=== PATIENT | female | born 1960 | race Caucasian/White ===

== ENCOUNTER 2016-08-14 11:51 | Inpatient (IN) | payer MEDICAID, OTHER ==
[~2016-08-14] VITALS: Ht 172.7 cm; Wt 52.2 kg
[~2016-08-14 11:51] MED LIST: CITA20TA9 PO; RISP3 PO
[2016-08-14 12:38] LABS: BASOPHILS % (AUTO) 0.6 % (0.0-2.0); EOSINOPHILS % (AUTO) 1.2 % (1.0-6.0); HEMATOCRIT 31.8 % (36-46); LYMPHOCYTES # (AUTO) 1.8 K/uL (1.0-4.8); MEAN CORPUSCULAR HEMOGLOBIN 30.3 pg (26.0-34.0); MEAN CORPUSCULAR HGB CONC 34.6 G/dL (31.0-37.0); MEAN CORPUSCULAR VOLUME 88 fL (80-100); MONOCYTES % (AUTO) 10.6 % (2.0-9.0); NEUTROPHILS # (AUTO) 6.6 K/uL (1.8-7.7); NEUTROPHILS % (AUTO) 68.6 % (40.0-70.0); PLATELET COUNT (AUTO) 379 K/uL (150-450); RED BLOOD CELL COUNT(AUTO) 3.63 MIL/uL (4.00-5.20); RED CELL DISTRIBUTION WIDTH 13.5 % (11.5-14.5); WHITE BLOOD COUNT (AUTO) 9.6 K/uL (4.5-11.0)
[2016-08-14 12:55] LABS: ANION GAP 13 mmol/L (8-16); CALCIUM, TOTAL 8.9 mg/dL (8.8-10.5); CARBON DIOXIDE 21 mmol/L (22-29); CHLORIDE 101 mmol/L (98-107); CREATININE 0.67 mg/dL (0.60-1.30); GLOMERULAR FILTR. RATE CALC > 60 mL/min (>60); POTASSIUM 3.1 mmol/L (3.5-5.1); SODIUM SERUM 135 mmol/L (136-145); UREA NITROGEN, BLOOD 21 mg/dL (7-18)
[2016-08-14 13:01] LABS: ALANINE AMINOTRANSFERASE 42 U/L (12-78); ALBUMIN 3.8 g/dL (3.4-5.0); ASPARTATE AMINOTRANSFERASE 89 U/L (15-37); BILIRUBIN,TOTAL 0.9 mg/dL (0.1-1.0); TOTAL PROTEIN, SERUM 7.5 g/dL (6.4-8.2)
[2016-08-14] MEDS ORDERED: DiphenhydrAMINE HCL 50 MG/ML VIAL IM ONE (14:00)
[2016-08-14] MEDS ORDERED: HALOPERIDOL LACTATE 5 MG/ML VIAL IM ONE (14:00)
[2016-08-14] MEDS ORDERED: LORazepam 2 MG/ML VIAL IM ONE (14:00)
[2016-08-14] MEDS ORDERED: MAG HYDROX/AL HYDROX/SIMETH ES 30 ML SUSPENSION UDCUP PO PRN (14:30)
[2016-08-14] MEDS ORDERED: ZOLPIDEM TARTRATE 10 MG TABLET PO PRN (14:30)
[2016-08-14] MEDS ORDERED: MAGNESIUM HYDROXIDE SUSPENSION 30 ML UDCUP PO PRN (14:30)
[2016-08-14] MEDS ORDERED: ACETAMINOPHEN 325 MG TABLET PO PRN (14:30)
[2016-08-14] MEDS ORDERED: POTASSIUM CHLORIDE 20 MEQ ER TABLET PO ONE (15:30)
[2016-08-14 19:27] VITALS: BP 100/79
[2016-08-14] MEDS ORDERED: PNEUMOCOCCAL VACCINE POLYVALENT 0.5 ML VIAL [PPSV23] IM ONE (19:45)
[2016-08-15 08:05] VITALS: BP 108/68
[2016-08-15] MEDS ORDERED: MAG HYDROX/AL HYDROX/SIMETH ES 30 ML SUSPENSION UDCUP PO PRN (11:00)
[2016-08-15] MEDS ORDERED: CloNIDine HCL 0.1 MG TABLET PO PRN (11:00)
[2016-08-15] MEDS ORDERED: BENZOCAINE/MENTHOL LOZENGE MM PRN (11:00)
[2016-08-15] MEDS ORDERED: MAGNESIUM HYDROXIDE SUSPENSION 30 ML UDCUP PO PRN (11:00)
[2016-08-15] MEDS ORDERED: BACITRACIN 28.4 GM OINTMENT TP PRN (11:00)
[2016-08-15] MEDS ORDERED: ACETAMINOPHEN 325 MG TABLET PO PRN (11:00)
[2016-08-15] MEDS ORDERED: ALBUTEROL SULFATE HFA 90 MCG/PUFF 8 GM INHALER IH PRN (11:00)
[2016-08-15] MEDS ORDERED: ONDANSETRON HCL 4 MG TABLET PO PRN (11:00)
[2016-08-15] MEDS ORDERED: PETROLATUM,WHITE 71 GM JELLY TP PRN (11:00)
[2016-08-15] MEDS ORDERED: IBUPROFEN 600 MG TABLET PO PRN (11:00)
[2016-08-15] MEDS ORDERED: LOPERAMIDE HCL 2 MG CAPSULE PO PRN (11:00)
[2016-08-15 16:06] VITALS: BP 112/62
[2016-08-15] MEDS: CITALOPRAM HYDROBROMIDE 20 MG TABLET PO SCH (21:00)
[2016-08-16 08:02] VITALS: BP 144/81
[2016-08-16] MEDS: LORazepam 2 MG TABLET PO PRN ×2 (08:32→16:31)
[2016-08-16] MEDS: HALOPERIDOL 5 MG TABLET PO PRN ×2 (08:32→16:31)
[2016-08-16] MEDS: RisperiDONE 1 MG TABLET PO SCH ×2 (08:32→16:31)
[2016-08-16] MEDS ORDERED: RisperiDONE MICROSPHERES 50 MG/2 ML SYRINGE IM ONE (09:00)
[2016-08-16] MEDS: NICOTINE 21 MG/24 HOUR PATCH TD SCH (09:04)
[2016-08-16 16:39] VITALS: BP 96/66
[2016-08-16] MEDS: CITALOPRAM HYDROBROMIDE 20 MG TABLET PO SCH (20:47)
[2016-08-17 08:02] VITALS: BP 91/64
[2016-08-17] MEDS: LORazepam 2 MG TABLET PO PRN (08:19)
[2016-08-17] MEDS: NICOTINE 21 MG/24 HOUR PATCH TD SCH (08:19)
[2016-08-17] MEDS: RisperiDONE 1 MG TABLET PO SCH ×2 (08:19→16:02)
[2016-08-17 16:32] VITALS: BP 101/76
[2016-08-17] MEDS: CITALOPRAM HYDROBROMIDE 20 MG TABLET PO SCH (20:39)
[2016-08-18 03:10] VITALS: BP 101/71
[2016-08-18] MEDS: NICOTINE 21 MG/24 HOUR PATCH TD SCH (08:01)
[2016-08-18] MEDS: RisperiDONE 1 MG TABLET PO SCH ×2 (08:01→16:37)
[2016-08-18 08:28] VITALS: BP 103/65
[2016-08-18 14:02] VITALS: BP 112/67
[2016-08-18 16:02] VITALS: BP 112/67
[2016-08-18] MEDS: LORazepam 2 MG TABLET PO PRN (16:37)
[2016-08-18] MEDS ORDERED: RisperiDONE 3 MG TABLET PO ONE (19:45)
[2016-08-18] MEDS: CITALOPRAM HYDROBROMIDE 20 MG TABLET PO SCH (20:27)
[2016-08-19 05:31] VITALS: BP 110/68
[2016-08-19] MEDS: NICOTINE 21 MG/24 HOUR PATCH TD SCH (08:20)
[2016-08-19] MEDS: LORazepam 2 MG TABLET PO PRN (08:23)
[2016-08-19 08:55] VITALS: BP 117/71
[2016-08-19] MEDS ORDERED: RisperiDONE 3 MG TABLET PO SCH (09:00)
[2016-08-19] MEDS ORDERED: CITA20TA9 PO (09:56)
[2016-08-19] MEDS ORDERED: RISP3 PO (09:56)
== END 2016-08-19 11:15 | disposition home or self-care (01) | DRG 753 ==
LOC: EMS 11:53 → B3A 18:14
PROVIDERS: ADMIT Psychiatry & Neurology Psychiatry; ATTEND Psychiatry & Neurology Psychiatry
DX: F39 Unspecified mood [affective] disorder (principal); R45.851 Suicidal ideations; E44.1 Mild protein-calorie malnutrition; F29 Unspecified psychosis not due to a substance or known physiological condition; J44.9 Chronic obstructive pulmonary disease, unspecified; B18.2 Chronic viral hepatitis C; E87.6 Hypokalemia; F15.229 Other stimulant dependence with intoxication, unspecified; F17.210 Nicotine dependence, cigarettes, uncomplicated; F60.3 Borderline personality disorder; K59.00 Constipation, unspecified; M19.90 Unspecified osteoarthritis, unspecified site; Z59.0 Homelessness; Z72.89 Other problems related to lifestyle; Z79.899 Other long term (current) drug therapy; Z71.41 Alcohol abuse counseling and surveillance of alcoholic; Z68.1 Body mass index [BMI] 19.9 or less, adult; Z28.21 Immunization not carried out because of patient refusal; Z71.6 Tobacco abuse counseling
CPT/HCPCS: 84132; 87081; 90471; 96372; 99285; G0480; J1200; J1630; J2060; J2794

== ENCOUNTER 2017-03-10 09:49 | Inpatient (IN) | payer MEDICAID ==
[~2017-03-10] VITALS: Ht 172.7 cm; Wt 55.5 kg
[2017-03-10] MEDS ORDERED: ZOLPIDEM TARTRATE 10 MG TABLET PO PRN (10:45)
[2017-03-10 11:00] VITALS: BP 112/73
[2017-03-10 11:20] VITALS: BP 105/78
[2017-03-10] MEDS ORDERED: LORazepam 2 MG/ML VIAL ONE (11:24)
[2017-03-10] MEDS ORDERED: DiphenhydrAMINE HCL 50 MG/ML VIAL IM ONE (11:30)
[2017-03-10] MEDS ORDERED: HALOPERIDOL LACTATE 5 MG/ML VIAL IM ONE (11:30)
[2017-03-10] MEDS ORDERED: LORazepam 2 MG/ML VIAL IM ONE (11:30)
[2017-03-10] MEDS ORDERED: PNEUMOCOCCAL VACCINE POLYVALENT 0.5 ML VIAL [PPSV23] IM ONE (12:45)
[2017-03-10] MEDS: RisperiDONE 2 MG TABLET PO SCH (20:11)
[2017-03-11 04:51] VITALS: BP 124/72
[2017-03-11] MEDS: HALOPERIDOL 5 MG TABLET PO PRN ×2 (05:08→09:54)
[2017-03-11] MEDS ORDERED: PETROLATUM,WHITE 71 GM JELLY TP PRN (08:30)
[2017-03-11] MEDS ORDERED: MAGNESIUM HYDROXIDE SUSPENSION 30 ML UDCUP PO PRN (08:30)
[2017-03-11] MEDS ORDERED: IBUPROFEN 600 MG TABLET PO PRN (08:30)
[2017-03-11] MEDS ORDERED: BACITRACIN 28.4 GM OINTMENT TP PRN (08:30)
[2017-03-11] MEDS ORDERED: ONDANSETRON HCL 4 MG TABLET PO PRN (08:30)
[2017-03-11] MEDS ORDERED: CloNIDine HCL 0.1 MG TABLET PO PRN (08:30)
[2017-03-11] MEDS ORDERED: ALBUTEROL SULFATE HFA 90 MCG/PUFF 8 GM INHALER IH PRN (08:30)
[2017-03-11] MEDS ORDERED: MAG HYDROX/AL HYDROX/SIMETH ES 30 ML SUSPENSION UDCUP PO PRN (08:30)
[2017-03-11] MEDS ORDERED: BENZOCAINE/MENTHOL LOZENGE MM PRN (08:30)
[2017-03-11] MEDS ORDERED: ACETAMINOPHEN 325 MG TABLET PO PRN (08:30)
[2017-03-11] MEDS ORDERED: LOPERAMIDE HCL 2 MG CAPSULE PO PRN (08:30)
[2017-03-11 08:36] VITALS: BP 109/65
[2017-03-11 09:18] LABS: APPEARANCE,URINE CLOUDY (CLEAR); GLUCOSE, URINE (UA) NEGATIVE (NEGATIVE); KETONES,URINE TRACE mg/dL (NEGATIVE); OCCULT BLOOD,URINE NEGATIVE (NEGATIVE); PROTEIN,URINE NEGATIVE (NEGATIVE)
[2017-03-11] MEDS: CITALOPRAM HYDROBROMIDE 20 MG TABLET PO SCH (09:22)
[2017-03-11] MEDS: RisperiDONE 2 MG TABLET PO SCH ×2 (09:22→20:03)
[2017-03-11] MEDS: NICOTINE 21 MG/24 HOUR PATCH TD SCH (09:24)
[2017-03-11 09:30] LABS: ADD UA MICROSCOPIC YES; LEUKOCYTE ESTERASE ,URINE SMALL (NEGATIVE); RBC,URINE 0-2 /HPF (0-2)
[2017-03-11 09:31] LABS: CALCIUM OXALATE CRYSTALS,UR Moderate /LPF (None Seen); SQUAMOUS EPITHELIAL CELL,UR Many /LPF (None Seen)
[2017-03-11] MEDS: LORazepam 2 MG TABLET PO PRN (09:54)
[2017-03-11] MEDS: NITROFURANTOIN/NITROFURAN MAC 100 MG CAPSULE [MACROBID] PO SCH (16:04)
[2017-03-11 16:11] VITALS: BP 11/75
[2017-03-12 06:34] VITALS: BP 123/72
[2017-03-12 08:12] LABS: BASOPHILS % (AUTO) 0.5 % (0.0-2.0); EOSINOPHILS % (AUTO) 3.5 % (1.0-6.0); HEMATOCRIT 37.7 % (36-46); HEMOGLOBIN 12.7 g/dL (12.0-16.0); LYMPHOCYTES # (AUTO) 1.9 K/uL (1.0-4.8); MEAN CORPUSCULAR HEMOGLOBIN 30.1 pg (26.0-34.0); MEAN CORPUSCULAR HGB CONC 33.7 G/dL (31.0-37.0); MEAN CORPUSCULAR VOLUME 89 fL (80-100); MONOCYTES # (AUTO) 0.8 K/uL (0.1-1.0); MONOCYTES % (AUTO) 9.3 % (2.0-9.0); NEUTROPHILS # (AUTO) 5.2 K/uL (1.8-7.7); NEUTROPHILS % (AUTO) 63.7 % (40.0-70.0); PLATELET COUNT (AUTO) 401 K/uL (150-450); RED BLOOD CELL COUNT(AUTO) 4.22 MIL/uL (4.00-5.20); WHITE BLOOD COUNT (AUTO) 8.1 K/uL (4.5-11.0)
[2017-03-12] MEDS: NICOTINE 21 MG/24 HOUR PATCH TD SCH (08:14)
[2017-03-12] MEDS: LORazepam 2 MG TABLET PO PRN (08:16)
[2017-03-12] MEDS: NITROFURANTOIN/NITROFURAN MAC 100 MG CAPSULE [MACROBID] PO SCH ×2 (08:16→16:19)
[2017-03-12] MEDS: RisperiDONE 2 MG TABLET PO SCH ×2 (08:16→20:59)
[2017-03-12] MEDS: CITALOPRAM HYDROBROMIDE 20 MG TABLET PO SCH (08:16)
[2017-03-12 08:36] VITALS: BP 106/48
[2017-03-12 08:37] LABS: ALANINE AMINOTRANSFERASE 12 U/L (12-78); ALBUMIN 3.6 g/dL (3.4-5.0); ANION GAP 10 mmol/L (8-16); ASPARTATE AMINOTRANSFERASE 13 U/L (15-37); BILIRUBIN,TOTAL 0.3 mg/dL (0.1-1.0); CALCIUM, TOTAL 8.6 mg/dL (8.8-10.5); CARBON DIOXIDE 24 mmol/L (22-29); CHLORIDE 102 mmol/L (98-107); CHOL/HDL RATIO 3.9 (3.9-5.7); CREATININE 0.72 mg/dL (0.60-1.30); GLOMERULAR FILTR. RATE CALC > 60 mL/min (>60); POTASSIUM 4.3 mmol/L (3.5-5.1); SODIUM SERUM 136 mmol/L (136-145); THYROID STIMULATING HORMONE 0.65 uIU/mL (0.36-3.74); TOTAL PROTEIN, SERUM 7.4 g/dL (6.4-8.2); UREA NITROGEN, BLOOD 28 mg/dL (7-18)
[2017-03-12 08:55] LABS: HEMOGLOBIN A1C 5.9 % (4.5-6.2)
[2017-03-12 16:04] VITALS: BP 110/78
[2017-03-13] MEDS: NICOTINE 21 MG/24 HOUR PATCH TD SCH (08:23)
[2017-03-13] MEDS: CITALOPRAM HYDROBROMIDE 20 MG TABLET PO SCH (08:23)
[2017-03-13] MEDS: LORazepam 2 MG TABLET PO PRN (08:24)
[2017-03-13] MEDS: RisperiDONE 2 MG TABLET PO SCH ×2 (08:24→20:00)
[2017-03-13 08:33] LABS: APPEARANCE,URINE CLEAR (CLEAR); GLUCOSE, URINE (UA) NEGATIVE (NEGATIVE); KETONES,URINE NEGATIVE (NEGATIVE); LEUKOCYTE ESTERASE ,URINE NEGATIVE (NEGATIVE); OCCULT BLOOD,URINE NEGATIVE (NEGATIVE); PROTEIN,URINE NEGATIVE (NEGATIVE)
[2017-03-13 08:47] VITALS: BP 127/82
[2017-03-13 09:07] LABS: ADD UA MICROSCOPIC NO
[2017-03-13 16:10] VITALS: BP 101/76
[2017-03-14 05:52] VITALS: BP 112/67
[2017-03-14] MEDS: CITALOPRAM HYDROBROMIDE 20 MG TABLET PO SCH (07:56)
[2017-03-14] MEDS: HALOPERIDOL 5 MG TABLET PO PRN (07:56)
[2017-03-14] MEDS: LORazepam 2 MG TABLET PO PRN (07:56)
[2017-03-14] MEDS: NICOTINE 21 MG/24 HOUR PATCH TD SCH (07:56)
[2017-03-14] MEDS: RisperiDONE 2 MG TABLET PO SCH ×2 (07:56→20:47)
[2017-03-14 08:32] VITALS: BP 106/75
[2017-03-14 16:00] VITALS: BP 109/75
[2017-03-15 00:50] VITALS: BP 114/67
[2017-03-15] MEDS: LORazepam 2 MG TABLET PO PRN ×3 (00:51→16:16)
[2017-03-15] MEDS: NICOTINE 21 MG/24 HOUR PATCH TD SCH (08:00)
[2017-03-15] MEDS: CITALOPRAM HYDROBROMIDE 20 MG TABLET PO SCH (08:00)
[2017-03-15] MEDS: RisperiDONE 2 MG TABLET PO SCH ×2 (08:00→20:14)
[2017-03-15 08:29] VITALS: BP 116/76
[2017-03-15 16:00] VITALS: BP 110/81
[2017-03-15] MEDS: HALOPERIDOL 5 MG TABLET PO PRN (16:16)
[2017-03-16 07:01] VITALS: BP 120/78
[2017-03-16 08:04] VITALS: BP 109/83
[2017-03-16] MEDS: RisperiDONE 2 MG TABLET PO SCH (08:05)
[2017-03-16] MEDS: CITALOPRAM HYDROBROMIDE 20 MG TABLET PO SCH (08:05)
[2017-03-16] MEDS: NICOTINE 21 MG/24 HOUR PATCH TD SCH (08:06)
[2017-03-16] MEDS ORDERED: RISP2TAB76 PO (08:40)
[2017-03-16] MEDS ORDERED: CITA20TA9 PO (08:40)
== END 2017-03-16 14:37 | disposition home or self-care (01) | DRG 750 ==
LOC: B3A 10:45
PROC: 3E0234Z Introduction of Serum, Toxoid and Vaccine into Muscle, Percutaneous Approach (ICD-10-PCS; principal; 2017-03-10)
DX: F20.0 Paranoid schizophrenia (principal); E44.0 Moderate protein-calorie malnutrition; J44.1 Chronic obstructive pulmonary disease with (acute) exacerbation; Z91.14 Patient's other noncompliance with medication regimen; B18.2 Chronic viral hepatitis C; F12.90 Cannabis use, unspecified, uncomplicated; F15.10 Other stimulant abuse, uncomplicated; F17.200 Nicotine dependence, unspecified, uncomplicated; K21.9 Gastro-esophageal reflux disease without esophagitis; K59.00 Constipation, unspecified; N39.0 Urinary tract infection, site not specified; Z79.899 Other long term (current) drug therapy; Z71.6 Tobacco abuse counseling; Z23 Encounter for immunization
CPT/HCPCS: 80307; 83036; 84439; 84443; 87086; 90471; J1200; J1630; J2060

== ENCOUNTER 2017-04-09 12:09 | Inpatient (IN) | payer MEDICAID ==
[~2017-04-09] VITALS: Ht 170.2 cm; Wt 54.5 kg
[~2017-04-09 12:09] MED LIST changes: +RISP2TAB76 PO; -RISP3 PO
[2017-04-09] MEDS ORDERED: LORazepam 2 MG/ML VIAL IM ONE (12:45)
[2017-04-09] MEDS ORDERED: HALOPERIDOL LACTATE 5 MG/ML VIAL IM ONE (12:45)
[2017-04-09] MEDS ORDERED: DiphenhydrAMINE HCL 50 MG/ML VIAL IM ONE (12:45)
[2017-04-09] MEDS ORDERED: LORazepam 2 MG TABLET PO PRN (13:15)
[2017-04-09] MEDS ORDERED: HALOPERIDOL 5 MG TABLET PO PRN (13:15)
[2017-04-09] MEDS ORDERED: ZOLPIDEM TARTRATE 10 MG TABLET PO PRN (13:15)
[2017-04-09 14:39] LABS: BASOPHILS # (AUTO) 0.06 K/uL (0.00-0.20); BASOPHILS % (AUTO) 0.9 % (0.0-2.0); EOSINOPHILS % (AUTO) 2.95 % (1.0-6.0); HEMATOCRIT 34.4 % (36-46); HEMOGLOBIN 11.8 g/dL (12.0-16.0); LYMPHOCYTES # (AUTO) 1.5 K/uL (1.0-4.8); LYMPHOCYTES % (AUTO) 22.1 % (22.0-44.0); MEAN CORPUSCULAR HEMOGLOBIN 30.2 pg (26.0-34.0); MEAN CORPUSCULAR HGB CONC 34.3 G/dL (31.0-37.0); MEAN CORPUSCULAR VOLUME 88 fL (80-100); MONOCYTES # (AUTO) 0.7 K/uL (0.1-1.0); NEUTROPHILS # (AUTO) 4.3 K/uL (1.8-7.7); PLATELET COUNT (AUTO) 360 K/uL (150-450); RED BLOOD CELL COUNT(AUTO) 3.91 MIL/uL (4.00-5.20); RED CELL DISTRIBUTION WIDTH 13.6 % (11.5-14.5); WHITE BLOOD COUNT (AUTO) 6.7 K/uL (4.5-11.0)
[2017-04-09 14:54] LABS: ANION GAP 8 mmol/L (8-16); CALCIUM, TOTAL 8.6 mg/dL (8.8-10.5); CARBON DIOXIDE 28 mmol/L (22-29); CHLORIDE 106 mmol/L (98-107); CREATININE 0.73 mg/dL (0.60-1.30); GLOMERULAR FILTR. RATE CALC > 60 mL/min (>60); POTASSIUM 3.5 mmol/L (3.5-5.1); SODIUM SERUM 142 mmol/L (136-145); UREA NITROGEN, BLOOD 17 mg/dL (7-18)
[2017-04-09 15:00] LABS: ALANINE AMINOTRANSFERASE 18 U/L (12-78); ALBUMIN 3.2 g/dL (3.4-5.0); AMYLASE 34 U/L (25-115); ASPARTATE AMINOTRANSFERASE 20 U/L (15-37); BILIRUBIN,TOTAL 0.3 mg/dL (0.1-1.0); TOTAL PROTEIN, SERUM 6.5 g/dL (6.4-8.2)
[2017-04-10 01:16] VITALS: BP 91/58
[2017-04-10] MEDS ORDERED: PETROLATUM,WHITE 71 GM JELLY TP PRN (08:30)
[2017-04-10] MEDS ORDERED: CloNIDine HCL 0.1 MG TABLET PO PRN (08:30)
[2017-04-10] MEDS ORDERED: MAG HYDROX/AL HYDROX/SIMETH ES 30 ML SUSPENSION UDCUP PO PRN (08:30)
[2017-04-10] MEDS ORDERED: ALBUTEROL SULFATE HFA 90 MCG/PUFF 8 GM INHALER IH PRN (08:30)
[2017-04-10] MEDS ORDERED: BENZOCAINE/MENTHOL LOZENGE [8 LOZENGES/PACKET] MM PRN (08:30)
[2017-04-10] MEDS ORDERED: ONDANSETRON HCL 4 MG TABLET PO PRN (08:30)
[2017-04-10] MEDS ORDERED: LOPERAMIDE HCL 2 MG CAPSULE PO PRN (08:30)
[2017-04-10] MEDS ORDERED: MAGNESIUM HYDROXIDE SUSPENSION 30 ML UDCUP PO PRN (08:30)
[2017-04-10] MEDS ORDERED: BACITRACIN 28.4 GM OINTMENT TP PRN (08:30)
[2017-04-10] MEDS: MULTIVITAMINS WITH MINERALS, THERAPEUTIC TABLET PO SCH (09:00)
[2017-04-10] MEDS: HYDROCORTISONE 0.5% 30 GM CREAM TP SCH ×2 (09:00→17:00)
[2017-04-10] MEDS: SIMVASTATIN 10 MG TABLET PO SCH (21:00)
[2017-04-10] MEDS: RisperiDONE 2 MG TABLET PO SCH (21:00)
[2017-04-11] MEDS: CITALOPRAM HYDROBROMIDE 20 MG TABLET PO SCH (09:00)
[2017-04-11] MEDS: MULTIVITAMINS WITH MINERALS, THERAPEUTIC TABLET PO SCH (09:00)
[2017-04-11] MEDS: HYDROCORTISONE 0.5% 30 GM CREAM TP SCH ×2 (09:00→17:00)
[2017-04-11] MEDS: RisperiDONE 2 MG TABLET PO SCH ×2 (09:00→21:00)
[2017-04-11 16:41] VITALS: BP 129/65
[2017-04-11] MEDS: IBUPROFEN 600 MG TABLET PO PRN (18:04)
[2017-04-11] MEDS: SIMVASTATIN 10 MG TABLET PO SCH (21:00)
[2017-04-12] MEDS: FERROUS SULFATE 325 MG EC TABLET PO SCH ×2 (06:43→17:30)
[2017-04-12 08:26] VITALS: BP 103/63
[2017-04-12] MEDS: HYDROCORTISONE 0.5% 30 GM CREAM TP SCH ×2 (09:00→17:00)
[2017-04-12] MEDS: MULTIVITAMINS WITH MINERALS, THERAPEUTIC TABLET PO SCH (09:00)
[2017-04-12] MEDS: RisperiDONE 2 MG TABLET PO SCH ×2 (09:00→21:00)
[2017-04-12] MEDS: CITALOPRAM HYDROBROMIDE 20 MG TABLET PO SCH (09:00)
[2017-04-12] MEDS: SIMVASTATIN 10 MG TABLET PO SCH (21:00)
[2017-04-13] MEDS: FERROUS SULFATE 325 MG EC TABLET PO SCH ×2 (07:01→16:22)
[2017-04-13] MEDS: MULTIVITAMINS WITH MINERALS, THERAPEUTIC TABLET PO SCH ×2 (09:00→12:12)
[2017-04-13] MEDS: RisperiDONE 2 MG TABLET PO SCH ×3 (09:00→20:20)
[2017-04-13] MEDS: CITALOPRAM HYDROBROMIDE 20 MG TABLET PO SCH ×2 (09:00→12:12)
[2017-04-13] MEDS: HYDROCORTISONE 0.5% 30 GM CREAM TP SCH ×2 (09:00→16:22)
[2017-04-13] MEDS: IBUPROFEN 600 MG TABLET PO PRN (10:30)
[2017-04-13] MEDS ORDERED: NICOTINE 21 MG/24 HOUR PATCH TD ONE (12:30)
[2017-04-13 17:33] VITALS: BP 101/61
[2017-04-13] MEDS: SIMVASTATIN 10 MG TABLET PO SCH (20:20)
[2017-04-14] MEDS: FERROUS SULFATE 325 MG EC TABLET PO SCH ×2 (06:58→18:28)
[2017-04-14] MEDS: MULTIVITAMINS WITH MINERALS, THERAPEUTIC TABLET PO SCH (08:14)
[2017-04-14] MEDS: RisperiDONE 2 MG TABLET PO SCH ×2 (08:14→22:47)
[2017-04-14] MEDS: CITALOPRAM HYDROBROMIDE 20 MG TABLET PO SCH (08:14)
[2017-04-14] MEDS: NICOTINE 21 MG/24 HOUR PATCH TD SCH (08:14)
[2017-04-14] MEDS: HYDROCORTISONE 0.5% 30 GM CREAM TP SCH ×2 (08:14→18:27)
[2017-04-14] MEDS: IBUPROFEN 600 MG TABLET PO PRN (08:15)
[2017-04-14] MEDS: SIMVASTATIN 10 MG TABLET PO SCH (22:47)
[2017-04-15] MEDS: FERROUS SULFATE 325 MG EC TABLET PO SCH ×2 (07:06→17:40)
[2017-04-15] MEDS: RisperiDONE 2 MG TABLET PO SCH ×2 (09:00→20:39)
[2017-04-15] MEDS: MULTIVITAMINS WITH MINERALS, THERAPEUTIC TABLET PO SCH (09:00)
[2017-04-15] MEDS: NICOTINE 21 MG/24 HOUR PATCH TD SCH (09:00)
[2017-04-15] MEDS: CITALOPRAM HYDROBROMIDE 20 MG TABLET PO SCH (09:00)
[2017-04-15] MEDS: HYDROCORTISONE 0.5% 30 GM CREAM TP SCH ×2 (09:00→17:40)
[2017-04-15] MEDS: IBUPROFEN 600 MG TABLET PO PRN (09:01)
[2017-04-15 10:25] VITALS: BP 90/60
[2017-04-15] MEDS: SIMVASTATIN 10 MG TABLET PO SCH (20:39)
[2017-04-16] MEDS: FERROUS SULFATE 325 MG EC TABLET PO SCH ×2 (06:59→16:11)
[2017-04-16] MEDS: CITALOPRAM HYDROBROMIDE 20 MG TABLET PO SCH (08:32)
[2017-04-16] MEDS: MULTIVITAMINS WITH MINERALS, THERAPEUTIC TABLET PO SCH (08:33)
[2017-04-16] MEDS: NICOTINE 21 MG/24 HOUR PATCH TD SCH (08:33)
[2017-04-16] MEDS: RisperiDONE 2 MG TABLET PO SCH ×2 (08:33→21:00)
[2017-04-16 09:01] VITALS: BP 94/66
[2017-04-16] MEDS: HYDROCORTISONE 0.5% 30 GM CREAM TP SCH ×2 (12:03→16:11)
[2017-04-16] MEDS: IBUPROFEN 600 MG TABLET PO PRN (14:19)
[2017-04-16] MEDS: SIMVASTATIN 10 MG TABLET PO SCH (21:00)
[2017-04-16 21:16] VITALS: BP 116/62
[2017-04-17] MEDS: FERROUS SULFATE 325 MG EC TABLET PO SCH ×2 (06:42→17:51)
[2017-04-17 08:00] VITALS: BP 97/73
[2017-04-17] MEDS: MULTIVITAMINS WITH MINERALS, THERAPEUTIC TABLET PO SCH (08:03)
[2017-04-17] MEDS: RisperiDONE 2 MG TABLET PO SCH ×2 (08:03→20:08)
[2017-04-17] MEDS: HYDROCORTISONE 0.5% 30 GM CREAM TP SCH ×2 (08:03→16:15)
[2017-04-17] MEDS: CITALOPRAM HYDROBROMIDE 20 MG TABLET PO SCH (08:03)
[2017-04-17] MEDS: NICOTINE 21 MG/24 HOUR PATCH TD SCH (08:03)
[2017-04-17] MEDS: IBUPROFEN 600 MG TABLET PO PRN (08:03)
[2017-04-17] MEDS: ACETAMINOPHEN 325 MG TABLET PO PRN ×2 (09:58→15:38)
[2017-04-17 15:38] VITALS: BP 105/68
[2017-04-17 16:35] VITALS: BP 100/62
[2017-04-17] MEDS: SIMVASTATIN 10 MG TABLET PO SCH (20:08)
[2017-04-18] MEDS: FERROUS SULFATE 325 MG EC TABLET PO SCH (06:52)
[2017-04-18 08:00] VITALS: BP 90/60
[2017-04-18] MEDS: RisperiDONE 2 MG TABLET PO SCH (08:08)
[2017-04-18] MEDS: NICOTINE 21 MG/24 HOUR PATCH TD SCH (08:08)
[2017-04-18] MEDS: MULTIVITAMINS WITH MINERALS, THERAPEUTIC TABLET PO SCH (08:08)
[2017-04-18] MEDS: CITALOPRAM HYDROBROMIDE 20 MG TABLET PO SCH (08:08)
[2017-04-18] MEDS: IBUPROFEN 600 MG TABLET PO PRN (08:08)
[2017-04-18] MEDS: HYDROCORTISONE 0.5% 30 GM CREAM TP SCH (08:09)
[2017-04-18] MEDS ORDERED: SIMV-259 PO (08:44)
[2017-04-18] MEDS ORDERED: FERR-89 PO (08:45)
[2017-04-18] MEDS ORDERED: DICL2100G TP (08:47)
[2017-04-18] MEDS ORDERED: DICLOFENAC SODIUM 1% 100 GM GEL [2GM] TP SCH (09:00)
== END 2017-04-18 10:30 | disposition home or self-care (01) | DRG 750 ==
LOC: EMS 12:10 → 3EC 22:39
DX: F20.0 Paranoid schizophrenia (principal); E83.51 Hypocalcemia; B18.2 Chronic viral hepatitis C; D64.9 Anemia, unspecified; E78.5 Hyperlipidemia, unspecified; F17.210 Nicotine dependence, cigarettes, uncomplicated; J44.9 Chronic obstructive pulmonary disease, unspecified; K21.9 Gastro-esophageal reflux disease without esophagitis; L20.9 Atopic dermatitis, unspecified; L30.9 Dermatitis, unspecified; Z59.0 Homelessness; Z79.899 Other long term (current) drug therapy; Z91.19 Patient's noncompliance with other medical treatment and regimen; F14.90 Cocaine use, unspecified, uncomplicated; F15.90 Other stimulant use, unspecified, uncomplicated; G47.00 Insomnia, unspecified; M25.551 Pain in right hip; M25.552 Pain in left hip; R40.0 Somnolence; Z71.51 Drug abuse counseling and surveillance of drug abuser; Z71.6 Tobacco abuse counseling; Z72.89 Other problems related to lifestyle; Z71.41 Alcohol abuse counseling and surveillance of alcoholic
CPT/HCPCS: 87081; 96372; 99285; J1200; J1630; J2060

== ENCOUNTER 2017-08-15 11:50 | Inpatient (IN) | payer MEDICAID, OTHER ==
[~2017-08-15] VITALS: Ht 157.5 cm; Wt 48.1 kg
[~2017-08-15 11:50] MED LIST changes: +DICL2100G TP; +FERR-89 PO; +SIMV-259 PO
[2017-08-15] MEDS ORDERED: DiphenhydrAMINE HCL 50 MG/ML VIAL IM ONE (12:15)
[2017-08-15] MEDS ORDERED: LORazepam 2 MG/ML VIAL IM ONE (12:15)
[2017-08-15] MEDS ORDERED: HALOPERIDOL LACTATE 5 MG/ML VIAL IM ONE (12:15)
[2017-08-15 12:17] LABS: BASOPHILS % (AUTO) 0.5 % (0.0-2.0); EOSINOPHILS % (AUTO) 2.1 % (1.0-6.0); HEMATOCRIT 30.4 % (36-46); HEMOGLOBIN 10.4 g/dL (12.0-16.0); LYMPHOCYTES # (AUTO) 2.2 K/uL (1.0-4.8); LYMPHOCYTES % (AUTO) 25.6 % (22.0-44.0); MEAN CORPUSCULAR HEMOGLOBIN 30.3 pg (26.0-34.0); MEAN CORPUSCULAR HGB CONC 34.2 G/dL (31.0-37.0); MEAN CORPUSCULAR VOLUME 89 fL (80-100); MONOCYTES # (AUTO) 1.4 K/uL (0.1-1.0); MONOCYTES % (AUTO) 16.1 % (2.0-9.0); NEUTROPHILS # (AUTO) 4.9 K/uL (1.8-7.7); NEUTROPHILS % (AUTO) 55.7 % (40.0-70.0); PLATELET COUNT (AUTO) 553 K/uL (150-450); RED BLOOD CELL COUNT(AUTO) 3.43 MIL/uL (4.00-5.20); RED CELL DISTRIBUTION WIDTH 13.7 % (11.5-14.5)
[2017-08-15 12:28] LABS: ANION GAP 15 mmol/L (8-16); CALCIUM, TOTAL 9.1 mg/dL (8.8-10.5); CARBON DIOXIDE 22 mmol/L (22-29); CHLORIDE 98 mmol/L (98-107); GLOMERULAR FILTR. RATE CALC > 60 mL/min (>60); GLUCOSE,RANDOM 102 mg/dL (70-110); POTASSIUM 3.1 mmol/L (3.5-5.1); SODIUM SERUM 135 mmol/L (136-145); UREA NITROGEN, BLOOD 32 mg/dL (7-18)
[2017-08-15 12:33] LABS: ALANINE AMINOTRANSFERASE 29 U/L (12-78); ALBUMIN 3.8 g/dL (3.4-5.0); ALKALINE PHOSPHATASE 147 U/L (46-116); ASPARTATE AMINOTRANSFERASE 28 U/L (15-37); BILIRUBIN,TOTAL 0.5 mg/dL (0.1-1.0); TOTAL PROTEIN, SERUM 8.2 g/dL (6.4-8.2)
[2017-08-15 15:50] LABS: AMPHET/METH SCREEN,URINE POSITIVE (NEGATIVE); BARBITURATE SCREEN, URINE NEGATIVE (NEGATIVE); BENZODIAZEPINES SCREEN,URINE NEGATIVE (NEGATIVE); CANNABINOID SCREEN,URINE NEGATIVE (NEGATIVE); COCAINE SCREEN,URINE NEGATIVE (NEGATIVE); METHADONE SCREEN, URINE NEGATIVE (NEGATIVE); OPIATE SCREEN,URINE NEGATIVE (NEGATIVE)
[2017-08-15 15:51] LABS: PHENCYCLIDINE SCREEN,URINE NEGATIVE (NEGATIVE)
[2017-08-15] MEDS ORDERED: HALOPERIDOL 5 MG TABLET PO PRN (16:00)
[2017-08-15] MEDS ORDERED: POTASSIUM CHLORIDE 20 MEQ ER TABLET PO ONE (16:45)
[2017-08-15 18:33] VITALS: BP 141/69
[2017-08-15] MEDS ORDERED: INFLUENZA VIRUS VACCINE QVS 2017-18 (3YR+)/PF 60 MCG/0.5 ML SYRINGE IM ONE (20:00)
[2017-08-15] MEDS: RisperiDONE 2 MG TABLET PO SCH (20:47)
[2017-08-16 00:01] VITALS: BP 131/68
[2017-08-16] MEDS: FERROUS SULFATE 325 MG EC TABLET PO SCH ×2 (07:15→16:28)
[2017-08-16 08:05] LABS: BASOPHILS # (AUTO) 0.04 K/uL (0.00-0.20); BASOPHILS % (AUTO) 0.8 % (0.0-2.0); EOSINOPHILS # (AUTO) 0.26 K/uL (0.00-0.70); EOSINOPHILS % (AUTO) 5.11 % (1.0-6.0); HEMATOCRIT 32.5 % (36-46); HEMOGLOBIN 10.7 g/dL (12.0-16.0); LYMPHOCYTES % (AUTO) 18.5 % (22.0-44.0); MEAN CORPUSCULAR HEMOGLOBIN 29.8 pg (26.0-34.0); MEAN CORPUSCULAR HGB CONC 32.9 G/dL (31.0-37.0); MEAN CORPUSCULAR VOLUME 90 fL (80-100); MONOCYTES # (AUTO) 0.7 K/uL (0.1-1.0); NEUTROPHILS # (AUTO) 3.2 K/uL (1.8-7.7); NEUTROPHILS % (AUTO) 62.7 % (40.0-70.0); PLATELET COUNT (AUTO) 491 K/uL (150-450); RED BLOOD CELL COUNT(AUTO) 3.59 MIL/uL (4.00-5.20)
[2017-08-16 08:34] LABS: ANION GAP 12 mmol/L (8-16); CALCIUM, TOTAL 8.5 mg/dL (8.8-10.5); CARBON DIOXIDE 25 mmol/L (22-29); CHLORIDE 101 mmol/L (98-107); CREATININE 0.53 mg/dL (0.60-1.30); GLOMERULAR FILTR. RATE CALC > 60 mL/min (>60); GLUCOSE,RANDOM 61 mg/dL (70-110); SODIUM SERUM 138 mmol/L (136-145); UREA NITROGEN, BLOOD 21 mg/dL (7-18)
[2017-08-16 09:00] VITALS: BP 126/91
[2017-08-16] MEDS: RisperiDONE 2 MG TABLET PO SCH ×2 (09:20→20:25)
[2017-08-16] MEDS ORDERED: POTASSIUM CHLORIDE 20 MEQ ER TABLET PO ONE (09:45)
[2017-08-16] MEDS ORDERED: PETROLATUM,WHITE 71 GM JELLY TP PRN (10:15)
[2017-08-16] MEDS ORDERED: CloNIDine HCL 0.1 MG TABLET PO PRN (10:15)
[2017-08-16] MEDS ORDERED: BACITRACIN 28.4 GM OINTMENT TP PRN (10:15)
[2017-08-16] MEDS ORDERED: ONDANSETRON HCL 4 MG TABLET PO PRN (10:15)
[2017-08-16] MEDS ORDERED: LOPERAMIDE HCL 2 MG CAPSULE PO PRN (10:15)
[2017-08-16] MEDS ORDERED: MAGNESIUM HYDROXIDE SUSPENSION 30 ML UDCUP PO PRN (10:15)
[2017-08-16] MEDS ORDERED: MAG HYDROX/AL HYDROX/SIMETH ES 30 ML SUSPENSION UDCUP PO PRN (10:15)
[2017-08-16] MEDS ORDERED: BENZOCAINE/MENTHOL LOZENGE MM PRN (10:15)
[2017-08-16] MEDS ORDERED: ACETAMINOPHEN 325 MG TABLET PO PRN (10:15)
[2017-08-16] MEDS ORDERED: ALBUTEROL SULFATE HFA 90 MCG/PUFF 8 GM INHALER IH PRN (10:15)
[2017-08-16] MEDS: SIMVASTATIN 10 MG TABLET PO SCH ×2 (20:25)
[2017-08-16] MEDS ORDERED: RisperiDONE 2 MG TABLET PO SCH (21:00)
[2017-08-17] MEDS: FERROUS SULFATE 325 MG EC TABLET PO SCH ×2 (06:37→16:28)
[2017-08-17 06:50] VITALS: BP 122/75
[2017-08-17] MEDS: IBUPROFEN 600 MG TABLET PO PRN (06:53)
[2017-08-17] MEDS: CHOLECALCIFEROL (VIT D3) 1,000 UNITS TABLET PO SCH (09:28)
[2017-08-17] MEDS: RisperiDONE 2 MG TABLET PO SCH ×2 (09:28→20:46)
[2017-08-17] MEDS: CITALOPRAM HYDROBROMIDE 20 MG TABLET PO SCH (09:28)
[2017-08-17] MEDS: SIMVASTATIN 10 MG TABLET PO SCH (20:46)
[2017-08-17] MEDS ORDERED: POTASSIUM CHLORIDE 20 MEQ ER TABLET PO ONE (22:30)
[2017-08-18] MEDS: MULTIVITAMINS WITH MINERALS, THERAPEUTIC TABLET PO SCH (07:02)
[2017-08-18] MEDS: FERROUS SULFATE 325 MG EC TABLET PO SCH ×2 (07:02→16:42)
[2017-08-18 08:30] VITALS: BP 126/88
[2017-08-18] MEDS ORDERED: CHOLECALCIFEROL (VIT D3) 1,000 UNITS TABLET PO SCH (09:00)
[2017-08-18] MEDS: RisperiDONE 2 MG TABLET PO SCH ×2 (09:50→20:35)
[2017-08-18] MEDS: CITALOPRAM HYDROBROMIDE 20 MG TABLET PO SCH (09:50)
[2017-08-18] MEDS: CHOLECALCIFEROL (VIT D3) 1,000 UNITS TABLET PO SCH (09:57)
[2017-08-18] MEDS: IBUPROFEN 600 MG TABLET PO PRN (09:58)
[2017-08-18 16:29] VITALS: BP 123/75
[2017-08-18] MEDS: SIMVASTATIN 10 MG TABLET PO SCH (20:35)
[2017-08-19 06:23] VITALS: BP 100/60
[2017-08-19] MEDS: FERROUS SULFATE 325 MG EC TABLET PO SCH ×2 (06:57→16:53)
[2017-08-19] MEDS: MULTIVITAMINS WITH MINERALS, THERAPEUTIC TABLET PO SCH (06:57)
[2017-08-19] MEDS: CITALOPRAM HYDROBROMIDE 20 MG TABLET PO SCH (08:34)
[2017-08-19] MEDS: RisperiDONE 2 MG TABLET PO SCH ×2 (08:34→20:30)
[2017-08-19] MEDS: CHOLECALCIFEROL (VIT D3) 1,000 UNITS TABLET PO SCH (08:34)
[2017-08-19 09:26] VITALS: BP 92/62
[2017-08-19] MEDS: IBUPROFEN 600 MG TABLET PO PRN ×2 (09:31→16:19)
[2017-08-19 16:25] VITALS: BP 100/61
[2017-08-19 18:04] VITALS: BP 102/64
[2017-08-19] MEDS: SIMVASTATIN 10 MG TABLET PO SCH (20:30)
[2017-08-20] MEDS: IBUPROFEN 600 MG TABLET PO PRN ×3 (02:16→16:27)
[2017-08-20] MEDS: MULTIVITAMINS WITH MINERALS, THERAPEUTIC TABLET PO SCH (06:25)
[2017-08-20] MEDS: FERROUS SULFATE 325 MG EC TABLET PO SCH ×2 (06:25→16:48)
[2017-08-20 08:41] VITALS: BP 104/73
[2017-08-20] MEDS: CITALOPRAM HYDROBROMIDE 20 MG TABLET PO SCH (08:55)
[2017-08-20] MEDS: CHOLECALCIFEROL (VIT D3) 1,000 UNITS TABLET PO SCH (08:55)
[2017-08-20] MEDS: RisperiDONE 2 MG TABLET PO SCH ×2 (08:57→20:40)
[2017-08-20] MEDS: LORazepam 2 MG TABLET PO PRN (08:57)
[2017-08-20 09:57] VITALS: BP 106/76
[2017-08-20 16:27] VITALS: BP 100/62
[2017-08-20] MEDS: SIMVASTATIN 10 MG TABLET PO SCH (20:40)
[2017-08-21] MEDS: IBUPROFEN 600 MG TABLET PO PRN ×2 (05:07→10:41)
[2017-08-21] MEDS: LORazepam 2 MG TABLET PO PRN ×2 (05:07→16:27)
[2017-08-21] MEDS: MULTIVITAMINS WITH MINERALS, THERAPEUTIC TABLET PO SCH (07:16)
[2017-08-21] MEDS: FERROUS SULFATE 325 MG EC TABLET PO SCH ×2 (07:16→16:27)
[2017-08-21 08:35] VITALS: BP 101/74
[2017-08-21] MEDS: CITALOPRAM HYDROBROMIDE 20 MG TABLET PO SCH (09:11)
[2017-08-21] MEDS: CHOLECALCIFEROL (VIT D3) 1,000 UNITS TABLET PO SCH (09:11)
[2017-08-21] MEDS: RisperiDONE 2 MG TABLET PO SCH ×2 (09:11→20:42)
[2017-08-21 10:42] VITALS: BP 83/71
[2017-08-21 11:42] VITALS: BP 105/68
[2017-08-21 13:05] VITALS: BP 105/64
[2017-08-21 16:00] VITALS: BP 102/64
[2017-08-21] MEDS: SIMVASTATIN 10 MG TABLET PO SCH (20:42)
[2017-08-21] MEDS: ZOLPIDEM TARTRATE 10 MG TABLET PO PRN (22:32)
[2017-08-22 04:39] VITALS: BP 99/69
[2017-08-22] MEDS: IBUPROFEN 600 MG TABLET PO PRN ×2 (04:39→13:00)
[2017-08-22] MEDS: MULTIVITAMINS WITH MINERALS, THERAPEUTIC TABLET PO SCH (06:47)
[2017-08-22] MEDS: FERROUS SULFATE 325 MG EC TABLET PO SCH ×2 (06:48→16:16)
[2017-08-22 08:44] VITALS: BP 100/64
[2017-08-22] MEDS: RisperiDONE 2 MG TABLET PO SCH ×2 (09:22→20:38)
[2017-08-22] MEDS: CHOLECALCIFEROL (VIT D3) 1,000 UNITS TABLET PO SCH (09:22)
[2017-08-22] MEDS: CITALOPRAM HYDROBROMIDE 20 MG TABLET PO SCH (09:22)
[2017-08-22 12:58] VITALS: BP 90/44
[2017-08-22 14:05] VITALS: BP 96/54
[2017-08-22 16:00] VITALS: BP 106/64
[2017-08-22] MEDS: TraMADol HCL 50 MG TABLET PO PRN (16:46)
[2017-08-22 17:46] VITALS: BP 108/75
[2017-08-22] MEDS: SIMVASTATIN 10 MG TABLET PO SCH (20:38)
[2017-08-23 00:50] VITALS: BP 106/61
[2017-08-23] MEDS: TraMADol HCL 50 MG TABLET PO PRN (00:51)
[2017-08-23] MEDS: MULTIVITAMINS WITH MINERALS, THERAPEUTIC TABLET PO SCH (07:04)
[2017-08-23] MEDS: FERROUS SULFATE 325 MG EC TABLET PO SCH ×2 (07:04→16:35)
[2017-08-23 08:25] VITALS: BP 100/52
[2017-08-23] MEDS: CHOLECALCIFEROL (VIT D3) 1,000 UNITS TABLET PO SCH (08:51)
[2017-08-23] MEDS: RisperiDONE 2 MG TABLET PO SCH ×2 (08:51→20:38)
[2017-08-23] MEDS: CITALOPRAM HYDROBROMIDE 20 MG TABLET PO SCH (08:51)
[2017-08-23] MEDS: SIMVASTATIN 10 MG TABLET PO SCH (20:39)
[2017-08-24 05:07] VITALS: BP 88/60
[2017-08-24] MEDS: TraMADol HCL 50 MG TABLET PO PRN (05:12)
[2017-08-24 06:12] VITALS: BP 98/64
[2017-08-24] MEDS: MULTIVITAMINS WITH MINERALS, THERAPEUTIC TABLET PO SCH (06:40)
[2017-08-24] MEDS: FERROUS SULFATE 325 MG EC TABLET PO SCH ×2 (06:40→16:18)
[2017-08-24 08:40] VITALS: BP 108/70
[2017-08-24] MEDS: CITALOPRAM HYDROBROMIDE 20 MG TABLET PO SCH (08:49)
[2017-08-24] MEDS: CHOLECALCIFEROL (VIT D3) 1,000 UNITS TABLET PO SCH (08:49)
[2017-08-24] MEDS: RisperiDONE 2 MG TABLET PO SCH ×2 (08:49→20:24)
[2017-08-24 16:35] VITALS: BP 98/68
[2017-08-24] MEDS: SIMVASTATIN 10 MG TABLET PO SCH (20:24)
[2017-08-25 02:02] VITALS: BP 102/64
[2017-08-25] MEDS: TraMADol HCL 50 MG TABLET PO PRN ×2 (02:07→11:34)
[2017-08-25] MEDS: FERROUS SULFATE 325 MG EC TABLET PO SCH ×2 (06:50→16:56)
[2017-08-25] MEDS: MULTIVITAMINS WITH MINERALS, THERAPEUTIC TABLET PO SCH (06:50)
[2017-08-25 08:19] VITALS: BP 105/63
[2017-08-25] MEDS: CITALOPRAM HYDROBROMIDE 20 MG TABLET PO SCH (08:24)
[2017-08-25] MEDS: CHOLECALCIFEROL (VIT D3) 1,000 UNITS TABLET PO SCH (08:24)
[2017-08-25] MEDS: RisperiDONE 2 MG TABLET PO SCH ×2 (08:24→20:40)
[2017-08-25 11:30] VITALS: BP 106/66
[2017-08-25 12:35] VITALS: BP 104/66
[2017-08-25 16:22] VITALS: BP 99/60
[2017-08-25] MEDS: ZOLPIDEM TARTRATE 10 MG TABLET PO PRN (20:40)
[2017-08-25] MEDS: SIMVASTATIN 10 MG TABLET PO SCH (20:40)
[2017-08-26 04:10] VITALS: BP 96/71
[2017-08-26] MEDS: TraMADol HCL 50 MG TABLET PO PRN (04:19)
[2017-08-26 04:30] VITALS: BP 109/56
[2017-08-26] MEDS: FERROUS SULFATE 325 MG EC TABLET PO SCH ×2 (06:56→16:53)
[2017-08-26] MEDS: MULTIVITAMINS WITH MINERALS, THERAPEUTIC TABLET PO SCH (06:56)
[2017-08-26] MEDS: RisperiDONE 2 MG TABLET PO SCH ×2 (08:14→21:19)
[2017-08-26] MEDS: CITALOPRAM HYDROBROMIDE 20 MG TABLET PO SCH (08:14)
[2017-08-26] MEDS: CHOLECALCIFEROL (VIT D3) 1,000 UNITS TABLET PO SCH (08:14)
[2017-08-26 08:32] VITALS: BP 100/51
[2017-08-26 17:02] VITALS: BP 93/61
[2017-08-26] MEDS: SIMVASTATIN 10 MG TABLET PO SCH (21:19)
[2017-08-27 04:54] VITALS: BP 101/57
[2017-08-27] MEDS: FERROUS SULFATE 325 MG EC TABLET PO SCH (07:06)
[2017-08-27] MEDS: MULTIVITAMINS WITH MINERALS, THERAPEUTIC TABLET PO SCH (07:06)
[2017-08-27 08:32] VITALS: BP 100/55
[2017-08-27] MEDS: CITALOPRAM HYDROBROMIDE 20 MG TABLET PO SCH (08:33)
[2017-08-27] MEDS: CHOLECALCIFEROL (VIT D3) 1,000 UNITS TABLET PO SCH (08:33)
[2017-08-27] MEDS: RisperiDONE 2 MG TABLET PO SCH (08:33)
[2017-08-27] MEDS: TraMADol HCL 50 MG TABLET PO PRN (08:34)
[2017-08-27] MEDS ORDERED: VITAD1000 PO (11:20)
== END 2017-08-27 13:05 | disposition home or self-care (01) | DRG 750 ==
LOC: EMS 11:55 → B3A 16:38
PROVIDERS: ADMIT Psychiatry & Neurology Psychiatry; ATTEND Psychiatry & Neurology Child & Adolescent Psychiatry
DX: F20.0 Paranoid schizophrenia (principal); E44.1 Mild protein-calorie malnutrition; E55.9 Vitamin D deficiency, unspecified; E56.9 Vitamin deficiency, unspecified; J44.9 Chronic obstructive pulmonary disease, unspecified; B18.2 Chronic viral hepatitis C; E78.5 Hyperlipidemia, unspecified; E87.6 Hypokalemia; F12.90 Cannabis use, unspecified, uncomplicated; F17.210 Nicotine dependence, cigarettes, uncomplicated; G47.00 Insomnia, unspecified; K21.9 Gastro-esophageal reflux disease without esophagitis; D64.9 Anemia, unspecified; M25.511 Pain in right shoulder; M25.562 Pain in left knee; Z91.14 Patient's other noncompliance with medication regimen; Z59.0 Homelessness; Z71.51 Drug abuse counseling and surveillance of drug abuser; Z71.6 Tobacco abuse counseling
CPT/HCPCS: 82306; 84132; 84443; 96372; 99285; G0480; J1200; J1630; J2060

== ENCOUNTER 2017-08-31 12:21 | Inpatient (IN) | payer MEDICAID, OTHER ==
[~2017-08-31] VITALS: Ht 172.7 cm; Wt 50.9 kg
[~2017-08-31 12:21] MED LIST changes: -DICL2100G TP; +VITAD1000 PO
[2017-08-31 12:58] LABS: GLUCOSE,POINT OF CARE 96 MG/DL (70-110)
[2017-08-31] MEDS ORDERED: HALOPERIDOL 5 MG TABLET PO ONE (13:00)
[2017-08-31] MEDS ORDERED: LORazepam 2 MG TABLET PO ONE (13:00)
[2017-08-31] MEDS ORDERED: HALOPERIDOL LACTATE 5 MG/ML VIAL IM ONE (13:30)
[2017-08-31] MEDS ORDERED: DiphenhydrAMINE HCL 50 MG/ML VIAL IM ONE (13:30)
[2017-08-31] MEDS ORDERED: LORazepam 2 MG/ML VIAL IM ONE (13:30)
[2017-08-31] MEDS ORDERED: RAPID SEQUENCE KIT [RSI] 1 EACH KIT ONE (13:32)
[2017-08-31] MEDS ORDERED: SUCCINYLCHOLINE CHLORIDE 20 MG/ML 10 ML VIAL ONE (13:32)
[2017-08-31] MEDS ORDERED: LORazepam 2 MG TABLET PO PRN (14:00)
[2017-08-31] MEDS ORDERED: HALOPERIDOL 5 MG TABLET PO PRN (14:00)
[2017-08-31 14:20] LABS: BASOPHILS % (AUTO) 0.7 % (0.0-2.0); EOSINOPHILS % (AUTO) 1.4 % (1.0-6.0); HEMATOCRIT 33.1 % (36-46); HEMOGLOBIN 11.3 g/dL (12.0-16.0); LYMPHOCYTES # (AUTO) 1.4 K/uL (1.0-4.8); MEAN CORPUSCULAR HEMOGLOBIN 29.3 pg (26.0-34.0); MEAN CORPUSCULAR HGB CONC 34.1 G/dL (31.0-37.0); MEAN CORPUSCULAR VOLUME 86 fL (80-100); MONOCYTES # (AUTO) 1.1 K/uL (0.1-1.0); MONOCYTES % (AUTO) 10.5 % (2.0-9.0); NEUTROPHILS # (AUTO) 7.6 K/uL (1.8-7.7); NEUTROPHILS % (AUTO) 73.4 % (40.0-70.0); PLATELET COUNT (AUTO) 482 K/uL (150-450); RED BLOOD CELL COUNT(AUTO) 3.84 MIL/uL (4.00-5.20); RED CELL DISTRIBUTION WIDTH 14.2 % (11.5-14.5)
[2017-08-31 14:49] LABS: ANION GAP 16 mmol/L (8-16); CARBON DIOXIDE 21 mmol/L (22-29); CHLORIDE 101 mmol/L (98-107); CREATININE 0.62 mg/dL (0.60-1.30); GLUCOSE,RANDOM 79 mg/dL (70-110); POTASSIUM 3.6 mmol/L (3.5-5.1); SODIUM SERUM 138 mmol/L (136-145); UREA NITROGEN, BLOOD 20 mg/dL (7-18)
[2017-08-31 14:50] LABS: CALCIUM, TOTAL 9.1 mg/dL (8.8-10.5); GLOMERULAR FILTR. RATE CALC > 60 mL/min (>60)
[2017-08-31 14:55] LABS: ALANINE AMINOTRANSFERASE 17 U/L (12-78); ALBUMIN 3.9 g/dL (3.4-5.0); ALKALINE PHOSPHATASE 137 U/L (46-116); ASPARTATE AMINOTRANSFERASE 29 U/L (15-37); BILIRUBIN,TOTAL 0.8 mg/dL (0.1-1.0); TOTAL PROTEIN, SERUM 7.9 g/dL (6.4-8.2)
[2017-08-31 16:34] VITALS: BP 105/59
[2017-08-31] MEDS: FERROUS SULFATE 325 MG EC TABLET PO SCH (17:00)
[2017-08-31] MEDS ORDERED: INFLUENZA VIRUS VACCINE QVS 2017-18 (3YR+)/PF 60 MCG/0.5 ML SYRINGE IM ONE (17:00)
[2017-08-31] MEDS: SIMVASTATIN 10 MG TABLET PO SCH (21:00)
[2017-09-01] MEDS: FERROUS SULFATE 325 MG EC TABLET PO SCH ×2 (06:33→17:16)
[2017-09-01 06:43] VITALS: BP 96/69
[2017-09-01] MEDS: CHOLECALCIFEROL (VIT D3) 1,000 UNITS TABLET PO SCH (08:55)
[2017-09-01 08:58] VITALS: BP 97/58
[2017-09-01] MEDS: RisperiDONE 2 MG TABLET PO SCH ×2 (10:13→20:47)
[2017-09-01] MEDS: CITALOPRAM HYDROBROMIDE 20 MG TABLET PO SCH (10:13)
[2017-09-01 16:54] VITALS: BP 101/62
[2017-09-01] MEDS ORDERED: BACITRACIN 28.4 GM OINTMENT TP PRN (20:30)
[2017-09-01] MEDS ORDERED: ALBUTEROL SULFATE HFA 90 MCG/PUFF 8 GM INHALER IH PRN (20:30)
[2017-09-01] MEDS ORDERED: MAG HYDROX/AL HYDROX/SIMETH ES 30 ML SUSPENSION UDCUP PO PRN (20:30)
[2017-09-01] MEDS ORDERED: ACETAMINOPHEN 325 MG TABLET PO PRN (20:30)
[2017-09-01] MEDS ORDERED: PETROLATUM,WHITE 71 GM JELLY TP PRN (20:30)
[2017-09-01] MEDS ORDERED: CloNIDine HCL 0.1 MG TABLET PO PRN (20:30)
[2017-09-01] MEDS ORDERED: BENZOCAINE/MENTHOL LOZENGE MM PRN (20:30)
[2017-09-01] MEDS ORDERED: ONDANSETRON HCL 4 MG TABLET PO PRN (20:30)
[2017-09-01] MEDS ORDERED: LOPERAMIDE HCL 2 MG CAPSULE PO PRN (20:30)
[2017-09-01] MEDS ORDERED: MAGNESIUM HYDROXIDE SUSPENSION 30 ML UDCUP PO PRN (20:30)
[2017-09-01 20:47] VITALS: BP 100/60
[2017-09-01] MEDS: IBUPROFEN 600 MG TABLET PO PRN (20:47)
[2017-09-01] MEDS: SIMVASTATIN 10 MG TABLET PO SCH (20:47)
[2017-09-02] MEDS: FERROUS SULFATE 325 MG EC TABLET PO SCH ×2 (06:40→17:19)
[2017-09-02 07:03] VITALS: BP 113/62
[2017-09-02 08:24] VITALS: BP 100/59
[2017-09-02] MEDS: CHOLECALCIFEROL (VIT D3) 1,000 UNITS TABLET PO SCH (08:49)
[2017-09-02] MEDS: RisperiDONE 2 MG TABLET PO SCH ×2 (08:49→20:57)
[2017-09-02] MEDS: CITALOPRAM HYDROBROMIDE 20 MG TABLET PO SCH (08:50)
[2017-09-02 09:00] LABS: CHOL/HDL RATIO 2.7 (3.9-5.7)
[2017-09-02 16:00] VITALS: BP 117/65
[2017-09-02] MEDS: IBUPROFEN 600 MG TABLET PO PRN (17:19)
[2017-09-02] MEDS: SIMVASTATIN 10 MG TABLET PO SCH (20:57)
[2017-09-02] MEDS: ZOLPIDEM TARTRATE 10 MG TABLET PO PRN (20:57)
[2017-09-03 04:34] VITALS: BP 98/75
[2017-09-03] MEDS: IBUPROFEN 600 MG TABLET PO PRN (04:57)
[2017-09-03] MEDS: FERROUS SULFATE 325 MG EC TABLET PO SCH ×2 (07:03→16:31)
[2017-09-03 08:12] VITALS: BP 92/70
[2017-09-03 08:19] LABS: HEMATOCRIT 35.3 % (36-46); HEMOGLOBIN 11.6 g/dL (12.0-16.0); MEAN CORPUSCULAR HEMOGLOBIN 28.7 pg (26.0-34.0); MEAN CORPUSCULAR HGB CONC 32.9 G/dL (31.0-37.0); MEAN CORPUSCULAR VOLUME 87 fL (80-100); PLATELET COUNT (AUTO) 462 K/uL (150-450); RED BLOOD CELL COUNT(AUTO) 4.05 MIL/uL (4.00-5.20); RED CELL DISTRIBUTION WIDTH 14.4 % (11.5-14.5)
[2017-09-03 08:50] LABS: ANION GAP 10 mmol/L (8-16); CALCIUM, TOTAL 8.7 mg/dL (8.8-10.5); CARBON DIOXIDE 27 mmol/L (22-29); CHLORIDE 106 mmol/L (98-107); GLOMERULAR FILTR. RATE CALC > 60 mL/min (>60); GLUCOSE,RANDOM 86 mg/dL (70-110); PHOSPHORUS 3.7 mg/dL (2.5-4.9); POTASSIUM 4.3 mmol/L (3.5-5.1); SODIUM SERUM 143 mmol/L (136-145); UREA NITROGEN, BLOOD 15 mg/dL (7-18)
[2017-09-03] MEDS: CHOLECALCIFEROL (VIT D3) 1,000 UNITS TABLET PO SCH (09:45)
[2017-09-03] MEDS: RisperiDONE 2 MG TABLET PO SCH ×2 (09:45→20:20)
[2017-09-03] MEDS: CITALOPRAM HYDROBROMIDE 20 MG TABLET PO SCH (09:46)
[2017-09-03] MEDS: ASPIRIN 81 MG EC TABLET PO SCH (09:46)
[2017-09-03 10:46] LABS: BASOPHILS % (MANUAL) 1 % (0-2); EOSINOPHILS % (MANUAL) 10 % (1-6); LYMPHOCYTES % (MANUAL) 28 % (22-44); MONOCYTES % (MANUAL) 7 % (2-9); SEGMENTED NEUTROPHILS % 54 % (40-70)
[2017-09-03 16:12] VITALS: BP 102/65
[2017-09-03] MEDS: SIMVASTATIN 10 MG TABLET PO SCH (20:20)
[2017-09-03] MEDS: ZOLPIDEM TARTRATE 10 MG TABLET PO PRN (20:20)
[2017-09-04 06:10] VITALS: BP 109/60
[2017-09-04] MEDS: IBUPROFEN 600 MG TABLET PO PRN ×2 (06:11→16:09)
[2017-09-04] MEDS: FERROUS SULFATE 325 MG EC TABLET PO SCH ×2 (06:37→16:08)
[2017-09-04 08:52] VITALS: BP 92/56
[2017-09-04] MEDS: CITALOPRAM HYDROBROMIDE 20 MG TABLET PO SCH (08:58)
[2017-09-04] MEDS: RisperiDONE 2 MG TABLET PO SCH ×2 (08:58→20:35)
[2017-09-04] MEDS: ASPIRIN 81 MG EC TABLET PO SCH (08:58)
[2017-09-04] MEDS: CHOLECALCIFEROL (VIT D3) 1,000 UNITS TABLET PO SCH (08:58)
[2017-09-04 16:07] VITALS: BP 102/67
[2017-09-04] MEDS: SIMVASTATIN 10 MG TABLET PO SCH (20:35)
[2017-09-05] MEDS: IBUPROFEN 600 MG TABLET PO PRN ×2 (04:58→13:06)
[2017-09-05 04:59] VITALS: BP 101/63
[2017-09-05] MEDS: FERROUS SULFATE 325 MG EC TABLET PO SCH ×2 (06:29→16:35)
[2017-09-05 08:32] VITALS: BP 105/63
[2017-09-05] MEDS: CHOLECALCIFEROL (VIT D3) 1,000 UNITS TABLET PO SCH (08:40)
[2017-09-05] MEDS: ASPIRIN 81 MG EC TABLET PO SCH (08:40)
[2017-09-05] MEDS: RisperiDONE 2 MG TABLET PO SCH ×2 (08:40→20:26)
[2017-09-05] MEDS: CITALOPRAM HYDROBROMIDE 20 MG TABLET PO SCH (08:40)
[2017-09-05 14:17] VITALS: BP 99/70
[2017-09-05 16:27] VITALS: BP 104/66
[2017-09-05] MEDS: SIMVASTATIN 10 MG TABLET PO SCH (20:26)
[2017-09-06] MEDS: IBUPROFEN 600 MG TABLET PO PRN ×2 (03:21→10:00)
[2017-09-06 06:11] VITALS: BP 100/63
[2017-09-06] MEDS: FERROUS SULFATE 325 MG EC TABLET PO SCH ×2 (06:46→16:49)
[2017-09-06 09:02] VITALS: BP 120/75
[2017-09-06] MEDS: CITALOPRAM HYDROBROMIDE 20 MG TABLET PO SCH (09:12)
[2017-09-06] MEDS: ASPIRIN 81 MG EC TABLET PO SCH (09:12)
[2017-09-06] MEDS: CHOLECALCIFEROL (VIT D3) 1,000 UNITS TABLET PO SCH (09:12)
[2017-09-06] MEDS: RisperiDONE 2 MG TABLET PO SCH ×2 (09:12→20:19)
[2017-09-06 16:37] VITALS: BP 109/60
[2017-09-06] MEDS: SIMVASTATIN 10 MG TABLET PO SCH (20:19)
[2017-09-07 03:34] VITALS: BP 104/63
[2017-09-07] MEDS: IBUPROFEN 600 MG TABLET PO PRN ×3 (05:47→20:42)
[2017-09-07] MEDS: FERROUS SULFATE 325 MG EC TABLET PO SCH ×2 (06:50→16:45)
[2017-09-07 08:40] VITALS: BP 101/69
[2017-09-07] MEDS: RisperiDONE 2 MG TABLET PO SCH ×2 (08:49→20:17)
[2017-09-07] MEDS: CHOLECALCIFEROL (VIT D3) 1,000 UNITS TABLET PO SCH (08:49)
[2017-09-07] MEDS: CITALOPRAM HYDROBROMIDE 20 MG TABLET PO SCH (08:49)
[2017-09-07] MEDS: ASPIRIN 81 MG EC TABLET PO SCH (08:50)
[2017-09-07] MEDS: NICOTINE 21 MG/24 HOUR PATCH TD SCH (11:53)
[2017-09-07 16:14] VITALS: BP 110/63
[2017-09-07] MEDS: SIMVASTATIN 10 MG TABLET PO SCH (20:17)
[2017-09-07 20:42] VITALS: BP 112/66
[2017-09-08 03:40] VITALS: BP 100/69
[2017-09-08] MEDS: IBUPROFEN 600 MG TABLET PO PRN ×4 (03:45→22:48)
[2017-09-08] MEDS: FERROUS SULFATE 325 MG EC TABLET PO SCH ×2 (06:38→16:47)
[2017-09-08 08:17] VITALS: BP 118/68
[2017-09-08 08:21] LABS: HEMATOCRIT 36.5 % (36-46); HEMOGLOBIN 12.3 g/dL (12.0-16.0); MEAN CORPUSCULAR HEMOGLOBIN 29.3 pg (26.0-34.0); MEAN CORPUSCULAR HGB CONC 33.7 G/dL (31.0-37.0); MEAN CORPUSCULAR VOLUME 87 fL (80-100); PLATELET COUNT (AUTO) 484 K/uL (150-450); RED BLOOD CELL COUNT(AUTO) 4.19 MIL/uL (4.00-5.20); RED CELL DISTRIBUTION WIDTH 14.1 % (11.5-14.5)
[2017-09-08] MEDS: CHOLECALCIFEROL (VIT D3) 1,000 UNITS TABLET PO SCH (08:21)
[2017-09-08] MEDS: NICOTINE 21 MG/24 HOUR PATCH TD SCH (08:21)
[2017-09-08] MEDS: CITALOPRAM HYDROBROMIDE 20 MG TABLET PO SCH (08:21)
[2017-09-08] MEDS: ASPIRIN 81 MG EC TABLET PO SCH (08:21)
[2017-09-08] MEDS: RisperiDONE 2 MG TABLET PO SCH ×2 (08:21→20:49)
[2017-09-08 08:57] LABS: ANION GAP 7 mmol/L (8-16); CARBON DIOXIDE 29 mmol/L (22-29); CHLORIDE 100 mmol/L (98-107); CREATININE 0.59 mg/dL (0.60-1.30); GLOMERULAR FILTR. RATE CALC > 60 mL/min (>60); GLUCOSE,RANDOM 94 mg/dL (70-110); PHOSPHORUS 4.2 mg/dL (2.5-4.9); POTASSIUM 4.5 mmol/L (3.5-5.1); SODIUM SERUM 136 mmol/L (136-145); UREA NITROGEN, BLOOD 20 mg/dL (7-18)
[2017-09-08 10:27] LABS: BAND NEUTROPHILS % (MANUAL) 1 % (1-5); BASOPHILS % (MANUAL) 2 % (0-2); EOSINOPHILS % (MANUAL) 1 % (1-6); LYMPHOCYTES % (MANUAL) 10 % (22-44); MONOCYTES % (MANUAL) 7 % (2-9); REACTIVE LYMPHOCYTES 11 % (0-0); SEGMENTED NEUTROPHILS % 68 % (40-70)
[2017-09-08 10:28] LABS: PLATELET MORPHOLOGY COMMENT INCREASED
[2017-09-08] MEDS ORDERED: SIMV-259 PO (15:51)
[2017-09-08] MEDS ORDERED: RISP2 PO (15:51)
[2017-09-08] MEDS ORDERED: ASPI-1182 PO (15:51)
[2017-09-08] MEDS ORDERED: CITA20TA9 PO (15:51)
[2017-09-08] MEDS ORDERED: FERR-89 PO (15:51)
[2017-09-08] MEDS ORDERED: VITAD1000 PO (15:51)
[2017-09-08 16:28] VITALS: BP 117/71
[2017-09-08] MEDS: SIMVASTATIN 10 MG TABLET PO SCH (20:49)
[2017-09-09] MEDS: IBUPROFEN 600 MG TABLET PO PRN (04:25)
[2017-09-09 04:27] VITALS: BP 108/59
[2017-09-09] MEDS: FERROUS SULFATE 325 MG EC TABLET PO SCH (06:37)
[2017-09-09] MEDS: NICOTINE 21 MG/24 HOUR PATCH TD SCH (07:52)
[2017-09-09] MEDS: RisperiDONE 2 MG TABLET PO SCH (07:52)
[2017-09-09] MEDS: CITALOPRAM HYDROBROMIDE 20 MG TABLET PO SCH (07:52)
[2017-09-09] MEDS: CHOLECALCIFEROL (VIT D3) 1,000 UNITS TABLET PO SCH (07:52)
== END 2017-09-09 07:54 | disposition home or self-care (01) | DRG 750 ==
LOC: EMS 12:23 → B3A 14:09 → B2S 09-05 13:45
PROVIDERS: ADMIT Psychiatry & Neurology Child & Adolescent Psychiatry; ATTEND Psychiatry & Neurology Child & Adolescent Psychiatry
PROC: 3E0234Z Introduction of Serum, Toxoid and Vaccine into Muscle, Percutaneous Approach (ICD-10-PCS; principal; 2017-08-31)
DX: F20.0 Paranoid schizophrenia (principal); F29 Unspecified psychosis not due to a substance or known physiological condition; E55.9 Vitamin D deficiency, unspecified; E78.5 Hyperlipidemia, unspecified; B18.2 Chronic viral hepatitis C; F17.200 Nicotine dependence, unspecified, uncomplicated; G47.00 Insomnia, unspecified; J44.9 Chronic obstructive pulmonary disease, unspecified; F15.10 Other stimulant abuse, uncomplicated; D64.9 Anemia, unspecified; D47.3 Essential (hemorrhagic) thrombocythemia; Z79.82 Long term (current) use of aspirin; Z79.899 Other long term (current) drug therapy; Z59.0 Homelessness; Z23 Encounter for immunization
CPT/HCPCS: 82948; 82962; 83735; 84100; 85007; 87081; 90471; 96372; 99285; G0480; J0330; J1200; J1630; J2060; J3535